=== PATIENT | male | born 1975 | race Caucasian/White ===

== ENCOUNTER 2020-10-13 06:55 | Day surgery (SDC) | payer OTHER ==
[~2020-10-13] VITALS: Ht 175.3 cm; Wt 87.0 kg
[~2020-10-13 06:55] MED LIST: ACET325T21 PO; ALLO100T PO; ATOR20TA PO; HYDROmorphone 2 MG/ML VIAL IVP PRN; IV RINGERS,LACTATED 1000ML 1,000 ML IV SCH; LISI2.5T PO; MORPHINE SULFATE 2 MG/ML INJ. IVP PRN; OMEP20TA8 PO; PROCHLORPERAZINE 10 MG/2 ML VIAL. IVP PRN; fentaNYL PF VIAL 100 MCG/2 ML VIAL IVP PRN
[2020-10-13] MEDS ORDERED: ACETAMINOPHEN 500 MG TABLET PO ONE (07:15)
[2020-10-13] MEDS ORDERED: MINERAL OIL for SURGERY 10 ML VIAL. MC ONE (07:20)
[2020-10-13] MEDS ORDERED: BUPIVACAINE-EPI 0.25%-1:200000 MPF 30 ML VIAL. ONE (07:21)
[2020-10-13] MEDS ORDERED: PROPOFOL 10 MG/ML (20ML) VIAL. IV ONE (07:32)
[2020-10-13] MEDS ORDERED: ROCURONIUM 50 MG/5 ML VIAL. ONE (07:32)
[2020-10-13] MEDS ORDERED: ONDANSETRON PF 4 MG/2 ML VIAL. ONE (07:33)
[2020-10-13] MEDS ORDERED: DEXAMETHASONE SOD PHOS 4 MG/ML VIAL ONE (07:33)
--- NOTE | 2020-10-13 07:51 | PDOC1 ---
History and Physical Date of Admission Date of Admission DATE: 10/13/20 TIME: 07:48 Identification/Chief Complaint Chief Complaint Left groin pain Source Source: Patient History of Present Illness History of Present Illness 44-year-old male with complaints of painful left groin bulge very similar to what he had on the right side. His right inguinal hernia was pared several years ago Past Medical History Cardiovascular: Hyperlipidemia Pulmonary: No pertinent hx GI: No pertinent hx Hepatobiliary: No pertinent hx Psych: No pertinent hx Rheumatologic: No pertinent hx Infectious disease: No pertinent hx ENT: No pertinent hx Renal/: Chronic renal insuff Endocrine: Other (Gout) Dermatology: No pertinent hx Past Surgical History Past Surgical History: Hernia Repair (Right side) Family History Family History: No Significant Social History Smoke: No ALCOHOL: none Drugs: None Current Medications Current Medications Current Medications Cefazolin Sodium/ Dextrose 50 ml @ 100 mls/hr 1X PREOP PRN IV PRIOR TO PROCEDURE; Start 10/13/20 at 06:00; Stop 10/13/20 at 18:00 Fentanyl Citrate (Fentanyl 2ml Vial) 25 mcg PRN Q5MIN PRN IVP MILD PAIN 1-3; Start 10/13/20 at 06:00; Stop 10/14/20 at 05:59 Fentanyl Citrate (Fentanyl 2ml Vial) 50 mcg PRN Q5MIN PRN IVP MODERATE PAIN 4- 6; Start 10/13/20 at 06:00; Stop 10/14/20 at 05:59 Morphine Sulfate (Morphine Sulfate) 1 mg PRN Q10MIN PRN IVP SEVERE PAIN 7-10; Start 10/13/20 at 06:00; Stop 10/14/20 at 05:59 Ringer's Solution 1,000 ml @ 30 mls/hr Q24H IV Last administered on 10/13/20at 07:30; Start 10/13/20 at 06:00; Stop 10/13/20 at 17:59 Hydromorphone HCl (Dilaudid) 0.5 mg PRN Q10MIN PRN IVP SEVERE PAIN 7-10, 2nd CHOICE; Start 10/13/20 at 06:00; Stop 10/14/20 at 05:59 Prochlorperazine Edisylate (Compazine) 5 mg PACU PRN PRN IVP NAUSEA, MRX1; Start 10/13/20 at 06:00; Stop 10/14/20 at 05:59 Scopolamine (Transderm-Scop) 1 patch Q3DAYS TD Last administered on 10/13/20at 07:38; Start 10/13/20 at 09:00 Acetaminophen (Tylenol) 1,000 mg 1X ONCE PO Last administered on 10/13/20at 07:37; Start 10/13/20 at 07:15; Stop 10/13/20 at 07:21; Status DC Mineral Oil (Muri-Lube) 10 ml STK-MED ONCE MC ; Start 10/13/20 at 07:20; Stop 10/13/20 at 07:21; Status DC Bupivacaine HCl/ Epinephrine Bitart (Sensorcaine-Epi 0.25%-1:914741 Mpf) 30 ml STK-MED ONCE .ROUTE ; Start 10/13/20 at 07:21; Stop 10/13/20 at 07:21; Status DC Rocuronium Donovan (Zemuron) 50 mg STK-MED ONCE .ROUTE ; Start 10/13/20 at 07:32; Stop 10/13/20 at 07:32; Status DC Propofol (Diprivan) 200 mg STK-MED ONCE IV ; Start 10/13/20 at 07:32; Stop 10/13/20 at 07:33; Status DC Dexamethasone Sodium Phosphate (Decadron) 4 mg STK-MED ONCE .ROUTE ; Start 10/13/20 at 07:33; Stop 10/13/20 at 07:33; Status DC Ondansetron HCl (Zofran) 4 mg STK-MED ONCE .ROUTE ; Start 10/13/20 at 07:33; Stop 10/13/20 at 07:33; Status DC Active Scripts Active Reported Acetaminophen 325 Mg Tablet 650 Mg PO PRN Q6HRS PRN Omeprazole 20 Mg Tablet.dr 20 Mg PO DAILY Allopurinol 100 Mg Tablet 100 Mg PO DAILY Lipitor (Atorvastatin Calcium) 20 Mg Tablet 20 Mg PO DAILY Lisinopril 2.5 Mg Tablet 2.5 Mg PO DAILY Allergies Allergies: Coded Allergies: No Known Drug Allergies (Unverified , 10/13/20) ROS Genitourinary: YES Pain Physical Exam General: Alert, Oriented X3, Cooperative, No acute distress HEENT: Atraumatic, EOMI Lungs: Clear to auscultation, Normal air movement Heart: RRR, no murmurs Abdomen: Normal bowel sounds, Soft, No tenderness Male Genitals Exam: hernia (Left inguinal hernia) Rectal Exam: not examined Extremities: No edema Skin: No significant lesion Neuro: Normal gait Psych/Mental Status: Mental status NL Vitals Vitals Vital Signs Date Time Temp Pulse Resp B/P (MAP) Pulse Ox O2 Delivery O2 Flow Rate FiO2 10/13/20 07:21 99.2 79 20 124/64 96 Room Air 99.2 VTE Prophylaxis Ordered VTE Prophylaxis Devices: Yes VTE Pharmacological Prophylaxi: Contraindicated Assessment/Plan Assessment/Plan Left inguinal hernia plan robotic laparoscopic repair Justifications for Admission Other Justification NICOLAS CASTILLO MD Oct 13, 2020 07:51
[2020-10-13] MEDS ORDERED: fentaNYL PF VIAL 100 MCG/2 ML VIAL ONE (08:07)
[2020-10-13] MEDS ORDERED: GLYCOPYRROLATE 1 MG/5 ML VIAL. ONE (08:29)
[2020-10-13] MEDS ORDERED: NEOSTIGMINE METHYLSULFATE 5 MG/5 ML SYRINGE. ONE (08:30)
--- NOTE | 2020-10-13 08:43 | PDOC4 ---
Operative Note Operative Note Date: October 13, 2020 at 840 Preoperative diagnosis: Left inguinal hernia Postoperative diagnosis: Same Procedure: Robotic assisted laparoscopic left inguinal hernia repair with mesh Surgeon: Victor Hugo Specimen: None Tatian: Patient is a 45-year-old male with complaints of a painful bulge in his left groin. Procedure of robotic assisted laparoscopic left inguinal hernia repair with mesh was explained to the patient detail risk-benefit were also discussed including bleeding infection injury to intra-abdominal contents possible necessitating further open operations alternatives to this procedure also discussed with the patient who seemed to understand and gave both verbal and written consent to have the procedure performed. Patient was taken to the operating room placed in the supine position general anesthesia was initiated once patient was sleeping intubated his abdomen was prepped and draped usual sterile fashion using ChloraPrep. Area just just above the umbilicus was injected with quarter percent Marcaine with epinephrine incision was made 11 blade scalpel and a varies needle was placed within the abdomen creating pneumoperitoneum once this was complete 8 mm da Praveen port was placed in the da Praveen camera was placed within the abdomen which was inspected was noted to have a left inguinal hernia both indirect and direct. 8 mm da Praveen port was placed in left midabdomen and an 8 mm ventral port was placed in the right midabdomen the da Praveen robot is brought and docked all port sites surgeon went to the robotic console using a grasper and Endo Shola scissors the peritoneum on the left side was incised and a window propagated inferiorly reducing the hernia contents and sac for both the direct and indirect hernias. A Bard large 3D max mesh for the left side was placed over the inguinal floor the mesh was sewn superiorly with 3-0 Vicryl single interrupted sutures in 3 different spots and the peritoneum was then closed with a running 2 OV lock absorbable suture. Sutures removed from the abdomen the da Praveen robot was undocked from all port sites pneumoperitoneum was reduced all ports were removed the port sites were all closed with 4-0 subcuticular Monocryl Mastisol Steri-Strips and island dressings were applied. Patient was awakened and extubated in the operating room taken to recovery in stable condition all sponge instrument needle counts listed as correct estimated blood loss 5 mL. NICOLAS CASTILLO MD Oct 13, 2020 08:43
--- NOTE | 2020-10-13 08:45 | DISCH ---
DISCHARGE INSTRUCTIONS Condition on Discharge Condition on Discharge: Stable Activity After Discharge Activity Instructions for Disc: Avoid exertion Other activity instructions: No lifting more than 20 pounds for 2 weeks Diet after Discharge Diet after Discharge: Regular Wound Incision Care Other wound/incision instructi: May shower in 24 hours Contacting the after DC Call your doctor for: If your condition worsens Follow-Up Follow up with: Dr. Castillo in 2 weeks NICOLAS CASTILLO MD Oct 13, 2020 08:45
[2020-10-13] MEDS ORDERED: SCOPOLAMINE 1.5MG PATCH. TD SCH (09:00)
[2020-10-13 09:35] VITALS: BP 110/56
== END 2020-10-13 10:00 | disposition home or self-care (01) ==
LOC: SURG 06:55 → EEVIPCON 08:30 → SURG 10:00
PROVIDERS: ATTEND Surgery
DX: K40.90 Unilateral inguinal hernia, without obstruction or gangrene, not specified as recurrent (principal); E78.00 Pure hypercholesterolemia, unspecified; K21.9 Gastro-esophageal reflux disease without esophagitis; N18.2 Chronic kidney disease, stage 2 (mild); M10.9 Gout, unspecified; Z79.899 Other long term (current) drug therapy; Z98.890 Other specified postprocedural states
CPT/HCPCS: 49650; A4364; A4930; A6219; C1781; J0690; J1100; J2405; J2704; J2710; J3010; J3490; S2900; A4657